=== PATIENT | male | born 1990 | race Two or more races ===

== ENCOUNTER 2020-03-31 07:30 | Inpatient (IN) | payer OTHER ==
[~2020-03-31] VITALS: Ht 186.7 cm; Wt 94.1 kg
[~2020-03-31 07:30] MED LIST: LEVE500T53 PO
[2020-03-31] MEDS ORDERED: RINGERS SOLUTION,LACTATED 1,000 ML IV ONE ×4 (10:00→18:54)
[2020-03-31] MEDS ORDERED: BUPIVACAINE HCL/PF 0.5% 30 ML VIAL ONE (11:31)
[2020-03-31] MEDS ORDERED: LIDOCAINE/PF 1% 30 ML VIAL ONE (11:31)
[2020-03-31] MEDS ORDERED: EPINEPHrine 1:1,000 [1 MG/ML] AMP ONE (11:31)
[2020-03-31] MEDS ORDERED: MINERAL OIL/PETROLATUM,WHITE PF 3.5 GM OPHTHALMIC OINTMENT ONE (11:56)
[2020-03-31] MEDS ORDERED: FentaNYL CITRATE-PF 250 MCG/5 ML VIAL IVP ONE (12:00)
[2020-03-31] MEDS ORDERED: FentaNYL CITRATE-PF 100 MCG/2 ML VIAL IVP ONE (12:00)
[2020-03-31] MEDS ORDERED: MIDAZOLAM HCL 2 MG/2 ML VIAL IVP ONE (12:00)
[2020-03-31] MEDS ORDERED: FentaNYL CITRATE-PF 100 MCG/2 ML VIAL IVP PRN (13:15)
[2020-03-31] MEDS ORDERED: MEPERIDINE-PF 25 MG/ML VIAL IVP PRN (13:15)
[2020-03-31] MEDS ORDERED: HYDROmorphone 2 MG/ML SYRINGE IVP PRN (13:15)
[2020-03-31] MEDS ORDERED: SUGAMMADEX SODIUM 200 MG/2 ML VIAL IVP ONE ×2 (16:50→18:53)
[2020-03-31] MEDS ORDERED: KETOROLAC TROMETHAMINE 60 MG/2 ML VIAL IM ONE (17:49)
[2020-03-31] MEDS ORDERED: VECURONIUM BROMIDE 10 MG/VIAL IV ONE (17:49)
[2020-03-31] MEDS ORDERED: METOPROLOL TARTRATE 5 MG/5 ML VIAL IV ONE (17:49)
[2020-03-31] MEDS ORDERED: SUCCINYLCHOLINE CHLORIDE 20 MG/ML 10 ML VIAL IM ONE (17:49)
[2020-03-31] MEDS ORDERED: DEXAMETHASONE SOD PHOS 4 MG/ML VIAL IVP ONE (17:49)
[2020-03-31] MEDS ORDERED: PROPOFOL 1% 20 ML VIAL IVP ONE (17:49)
[2020-03-31] MEDS ORDERED: ONDANSETRON HCL 4 MG/2 ML VIAL IVP ONE (17:49)
[2020-03-31] MEDS ORDERED: ROCURONIUM BROMIDE 10 MG/ML 5 ML VIAL IV ONE (17:49)
[2020-03-31] MEDS ORDERED: MEPERIDINE-PF 25 MG/ML VIAL ONE (17:58)
[2020-03-31 18:37] VITALS: BP 121/75
[2020-03-31 18:55] VITALS: BP 123/74
[2020-03-31] MEDS ORDERED: HYPROMELLOSE 0.5% 15 ML OPHTHALMIC SOLUTION OU PRN (19:00)
[2020-03-31] MEDS: HYDROCODONE/ACETAMINOPHEN 5-325 MG TABLET PO PRN (19:22)
[2020-03-31] MEDS: HYDROmorphone 2 MG/ML SYRINGE IVP PRN ×2 (20:33→22:41)
[2020-03-31 22:47] VITALS: BP 128/68
[2020-04-01] MEDS: HYDROCODONE/ACETAMINOPHEN 5-325 MG TABLET PO PRN ×2 (01:15→06:24)
[2020-04-01] MEDS: HYDROmorphone 2 MG/ML SYRINGE IVP PRN ×2 (02:25→13:17)
[2020-04-01 04:56] VITALS: BP 123/70
[2020-04-01] MEDS: OXYGEN THERAPY IH SCH ×2 (08:00→20:00)
[2020-04-01] MEDS: ASPIRIN 81 MG CHEWABLE TABLET PO SCH (08:22)
[2020-04-01] MEDS: LevETIRAcetam 500 MG TABLET PO SCH ×2 (08:22→20:22)
[2020-04-01] MEDS: OxyCODONE HCL/ACETAMINOPHEN 10-325 MG TABLET PO PRN ×4 (09:20→23:46)
[2020-04-01 11:27] VITALS: BP 114/72
[2020-04-01] MEDS ORDERED: OxyCODONE HCL/ACETAMINOPHEN 10-325 MG TABLET PO SCH (12:00)
[2020-04-01 16:00] VITALS: BP 133/82
[2020-04-01 20:16] VITALS: BP 122/72
[2020-04-02] VITALS: BP 120/81
[2020-04-02] MEDS: HYDROCODONE/ACETAMINOPHEN 5-325 MG TABLET PO PRN (02:22)
[2020-04-02 05:03] VITALS: BP 119/63
[2020-04-02] MEDS: OXYGEN THERAPY IH SCH (08:00)
[2020-04-02 08:24] VITALS: BP 126/76
[2020-04-02] MEDS: ASPIRIN 81 MG CHEWABLE TABLET PO SCH (08:26)
[2020-04-02] MEDS: LevETIRAcetam 500 MG TABLET PO SCH (08:26)
[2020-04-02 12:12] VITALS: BP 135/81
[2020-04-02] MEDS: OxyCODONE HCL/ACETAMINOPHEN 10-325 MG TABLET PO PRN ×2 (12:15→17:43)
[2020-04-02] MEDS ORDERED: OXYC-601 PO (12:22)
[2020-04-02] MEDS ORDERED: DOCU-275 PO ×2 (12:23→12:49)
[2020-04-02] MEDS ORDERED: ASPI81TA39 PO ×2 (12:23→12:51)
[2020-04-02] MEDS ORDERED: OXYC-43 PO (12:48)
[2020-04-02 16:29] VITALS: BP 134/76
== END 2020-04-02 19:08 | disposition home health service (06) | DRG 482 ==
LOC: EDSTATUS 07:30 → 4E 10:21
PROVIDERS: ADMIT Orthopaedic Surgery; ATTEND Orthopaedic Surgery
PROC: 0QQ Lower Bones, Repair (ICD-10-PCS; 2020-03-31)
PROC: 0SB94ZZ Excision of Right Hip Joint, Percutaneous Endoscopic Approach (ICD-10-PCS; principal; 2020-03-31 12:00)
DX: S73.191A Other sprain of right hip, initial encounter (principal); M94.251 Chondromalacia, right hip; M25.851 Other specified joint disorders, right hip; V89.2XXA Person injured in unspecified motor-vehicle accident, traffic, initial encounter; Z88.1 Allergy status to other antibiotic agents; Y93.89 Activity, other specified; Y92.410 Unspecified street and highway as the place of occurrence of the external cause; Y99.8 Other external cause status
CPT/HCPCS: 87081; 97161; 97166; 97535; G0238; G0378; J0171; J0330; J0690; J1100; J1170; J1885; J2175; J2250; J2405; J2704; J3010; J3490; J7120